=== PATIENT | female | born 1935 | race Asian ===

== ENCOUNTER → 2019-12-09 | Outpatient (CLI) | payer MEDICARE, BC ==
--- NOTE | 2019-12-09 15:40 | RAD ---
PA and lateral views of the chest. Comparison: None. Indication: Cough Findings: Normal lung volume. Mild bilateral interstitial opacities.. Normal pulmonary vasculature. No pleural effusion. No pneumothorax. The cardiomediastinal silhouette is normal in appearance. Atherosclerotic thoracic aorta. No acute osseous abnormality. Moderate multilevel degenerative changes of the visualized spine. Impression: Mild bilateral interstitial opacities. Findings could relate to emphysematous changes, although prior is not available for comparison. Mild pulmonary edema is another consideration, although cardiomegaly is not seen. Infectious process is not excluded, although focal consolidation is not seen. Electronically signed by: Ghassan Knapp MD (12/09/2019 3:37 PM) [id number]
== END | disposition home or self-care (01) ==
LOC: PMG 15:04
PROVIDERS: ATTEND Physician Assistant Medical
DX: R91.8 Other nonspecific abnormal finding of lung field (principal); I70.0 Atherosclerosis of aorta; M47.814 Spondylosis without myelopathy or radiculopathy, thoracic region
CPT/HCPCS: 71046

== ENCOUNTER 2021-06-01 18:57 | Emergency (ER) | payer MEDICARE, BC ==
[~2021-06-01] VITALS: Ht 149.9 cm; Wt 54.0 kg
[2021-06-01 19:04] VITALS: BP 146/91
[2021-06-01] MEDS ORDERED: DEXAMETHASONE 4 MG TABLET PO ONE (19:45)
[2021-06-01] MEDS ORDERED: ORPHENADRINE CITRATE 60 MG/2 ML VIAL. IM ONE (19:45)
[2021-06-01] MEDS ORDERED: PRED20TA PO (19:49)
[2021-06-01] MEDS ORDERED: ORPH-16 PO (19:49)
--- NOTE | 2021-06-01 19:49 | PHYS DOC ---
Past History Past Medical History: No Pertinent History Past Surgical History: Hysterectomy Smoking: Less than 1pk/day Alcohol Use: None General Adult EDM: Chief Complaint: BACK PAIN OR INJURY HPI: HPI: Patient is a 85-year-old female with chronic low back pain presents with lower back pain on the right side that started about 5 days ago after lifting some heavy pots outside. She states that the pain has been going on for many years. She had a disc removed about 40 to 50 years ago. Patient states she is also got steroid shots in the back which helped. Pain radiates down the right side of her leg and ends in her knee. Patient does state that she uses a cane because of the pain. She has taken some Advil which has relieved the pain just slightly. Last time she took Advil was about 5 hours ago. Patient does state that she has a lidocaine patch on as well which does not seem to be helping that much. Pain is rated at 9 out of 10. Patient denies any recent weight loss, cancer, fevers, saddle anesthesia. Patient also denies any trauma. Review of Systems: Review of Systems: Constitutional: Denies fever or chills Eyes: Denies redness or eye pain HENT: Denies nasal congestion or sore throat Respiratory: Denies cough or shortness of breath Cardiovascular: Denies chest pain or palpitations GI: Denies abdominal pain, nausea, or vomiting : Denies dysuria or hematuria Musculoskeletal: Endorses back pain Integument: Denies rash or skin lesions Neurologic: Denies headache, focal weakness or sensory changes Complete systems were reviewed and found to be within normal limits, except as documented in this note. Current Medications: Current Meds: Current Medications Medications (Trade) Dose Ordered Sig/Varinder Start Time Stop Time Status Last Admin Dose Admin Dexamethasone (Decadron) 10 mg 1X ONCE 06/01/21 19:45 06/01/21 19:46 Orphenadrine Citrate (Norflex) 60 mg 1X ONCE 06/01/21 19:45 06/01/21 19:46 Allergies: Allergies: Allergies Coded Allergies Type Severity Reaction Last Updated Verified No Known Drug Allergies 06/01/21 No Physical Exam: PE: Constitutional: Well developed, well nourished, no acute distress, non-toxic appearance HENT: Normocephalic, atraumatic Eyes: PERRL, EOMI, conjunctiva normal, no discharge Neck: Normal range of motion, no tenderness, supple Lungs & Thorax: No respiratory distress, equal chest rise and fall Abdomen: Soft, no tenderness Skin: Warm, dry, no erythema, no rash Back: No tenderness to palpation on the sinus processes or the paraspinal muscles, right straight leg test positive, full range of motion, slight flexion with ambulation and favors other leg while using cane Extremities: No tenderness, ROM intact, no edema Neurologic: Alert and oriented X 3, normal motor function, normal sensory function, no focal deficits noted Psychologic: Affect normal, judgment normal Current Patient Data: Vital Signs: Vital Signs Date Time Temp Pulse Resp B/P (MAP) Pulse Ox O2 Delivery O2 Flow Rate FiO2 06/01/21 19:04 98.4 93 18 146/91 (109) 97 Room Air Heart Score: C/O Chest Pain: No Course & Med Decision Making: Course & Med Decision Making 85-year-old female with past medical history of chronic back pain presents with low back pain on the right side is been going on for about 5 days after moving some heavy pots. Patient denies any recent trauma to the back. Patient also denies any weight loss, cancer, fevers, saddle anesthesia. Patient has taken some Advil and used a lidocaine patch which has only provided minimal relief. Patient was provided symptomatic relief with Toradol, steroids, and muscle relaxers. Considering the atraumatic nature of this low back pain and the chronicity of it, no imaging was obtained during this visit. Patient was encouraged to follow-up with physical medicine and rehabilitation and PCP. Patient stable for discharge with outpatient follow-up with PCP. Discussed findings and plan with patient, who acknowledges understanding and agreement. [employer] Disclaimer: Malena Disclaimer: This electronic medical record was generated, in whole or in part, using a voice recognition dictation system. Departure Departure: Impression: Primary Impression: Sciatica of right side Disposition: HOME / SELF CARE / HOMELESS Condition: STABLE Referrals: KENYON PALMER (PCP) Patient Instructions: Sciatica, [id number] Additional Instructions: Please follow up with pain management for further evaluation and treatment. ICE area of discomfort 20 min on then leave off next 20 mins. Repeat several times daily as needed for next few days. Continue use of over the counter Advil (Ibuprofen) or Aleve (naprosyn) in addition to Tylenol as needed. May also use lidocaine patches as needed. Scripts Prednisone (PREDNISONE) 20 Mg Tablet 2 TAB PO DAILY for Back Pain, #8 TAB Start this prescription tomorrow, 06/02/21 Prov: JONATAN ALVAREZ DO 06/01/21 Orphenadrine Citrate (ORPHENADRINE CITRATE) 100 Mg Tablet.er 1 TAB PO BID PRN for MUSCLE PAIN, #14 TAB 0 Refills Prov: JONATAN ALVAREZ DO 06/01/21 JONATAN ALVAREZ DO Jun 01, 2021 19:49
== END 2021-06-01 20:09 | disposition home or self-care (01) ==
LOC: ER 18:57
DX: M54.41 Lumbago with sciatica, right side (principal); F17.200 Nicotine dependence, unspecified, uncomplicated; Z90.710 Acquired absence of both cervix and uterus
CPT/HCPCS: 96372; 99283; J2360; J8540